=== PATIENT | female | born 1980 | race Caucasian/White ===

== ENCOUNTER 2021-03-01 13:39 | Inpatient (IN) | payer MEDICAID, OTHER ==
[~2021-03-01] VITALS: Ht 162.6 cm; Wt 74.9 kg
[2021-03-01] MEDS: SODIUM CHLORIDE 0.9% 1,000 ML IV SCH (01:00)
[2021-03-01 14:34] LABS: Urine Bacteria NONE SEEN /hpf (None Seen); Urine Blood Negative /uL (Negative); Urine Hyaline Cast FEW /lpf (0 - 2); Urine Mucus FEW (None Seen); Urine Specific Gravity 1.015 (1.001-1.035); Urine WBC 2 /hpf (0 - 5)
[2021-03-01 14:36] LABS: Basophils # (auto) 0.1 10 ^3/uL (0-0.2); Eosinophils # (auto) 0 10 ^3/uL (0-0.8); Lymphocytes # (auto) 0.9 10 ^3/uL (0.4-5.4)
[2021-03-01 14:38] LABS: Basophils % (auto) 0.3 % (0.0-2.0); Eosinophils % (auto) 0.1 % (0.0-7.0); Hematocrit 34.2 % (36.0-46.0); Hemoglobin 12.4 g/dL (12.2-16.2); Lymphocytes % (auto) 4.9 % (10.0-50.0); Mean Corpuscular Hemoglobin 37.2 pg (28.0-32.0); Mean Corpuscular Hgb Conc. 36.2 g/dL (32.0-36.0); Mean Corpuscular Volume 102.9 fL (80.0-100.0); Monocytes # (auto) 1.1 10 ^3/uL (0-1.3); Neutrophils % (auto) 88.7 % (37.0-80.0); Nucleated Red Blood Cells % 0.1 %; Red Blood Cells 3.32 10^6/uL (4.0-5.20); Red Cell Distribution Width 13.1 % (11.8-14.3); White Blood Cell 19.2 10^3/uL (4.4-10.8)
[2021-03-01 14:56] LABS: Alanine Aminotransferase 68 U/L (13-56); Albumin 2.1 g/dL (3.4-5.0); Anion Gap 13 (5-15); Aspartate Aminotransferase 267 U/L (15-37); BUN/Creatinine Ratio 20.6; Blood Urea Nitrogen 7 mg/dL (7-18); Calcium 7.4 mg/dL (8.5-10.1); Carbon Dioxide 24 mmol/L (21-32); Chloride 86 mmol/L (98-107); GFR African American 277 mL/min; GFR Non-African American 229 mL/min; Glucose 112 mg/dL (74-106); Magnesium 1.7 mg/dL (1.6-2.6); Potassium 3.3 mmol/L (3.5-5.1); Sodium 123 mmol/L (136-145)
[2021-03-01 15:01] LABS: Alkaline Phosphatase 554 U/L (45-117); Bilirubin, Total 10.8 mg/dL (0.2-1.0); Total Protein 6.1 g/dL (6.4-8.2)
[2021-03-01] MEDS ORDERED: SODIUM CHLORIDE 0.9% 1,000 ML IVB ONE (18:30)
[2021-03-01] MEDS ORDERED: ONDANSETRON HCL 4 MG/2 ML VIAL IV ONE (18:30)
[2021-03-01 20:02] LABS: Partial Thromboplastin Time 34.4 sec (23.0-31.2)
[2021-03-01 20:18] LABS: INR 4.08 (0.9-1.15)
[2021-03-01 20:29] LABS: Amylase 83 U/L (25-115); Lipase 516 U/L (73-393)
[2021-03-01 20:33] LABS: Lactic Acid w/Reflex 2.5 mmol/L (0.4-2.0)
[2021-03-01] MEDS ORDERED: cefTRIAXone 1GM/50ML D5W 50 ML IV ONE (22:15)
[2021-03-01] MEDS ORDERED: LACTATED RINGER'S 1,000 ML IV ONE (23:00)
[2021-03-01] MEDS ORDERED: ACETAMINOPHEN 325 MG TAB PO PRN (23:45)
[2021-03-01] MEDS ORDERED: MORPHINE SULF INJ 2 MG/ML SYRINGE 1ML IV PRN (23:45)
[2021-03-01] MEDS ORDERED: FOLIC ACID 1 MG, MULTIPLE VITAMIN 10 ML, MAGNESIUM SULF SDV 50% 8 MEQ, THIAMINE INJ 100... INJ ONE ×5 (23:45)
[2021-03-01] MEDS ORDERED: POTASSIUM CHL 20MEQ/100ML 100 ML IV ONE (23:45)
[2021-03-01] MEDS ORDERED: NITROGLYCERIN 0.4 MG SL TAB SL PRN (23:45)
[2021-03-01] MEDS ORDERED: DOCUSATE SOD 100 MG CAP PO PRN (23:45)
[2021-03-02] MEDS ORDERED: THIAMINE 100mg/ml INJ (200mg/2ml VIAL) ONE (00:57)
[2021-03-02] MEDS: MULTIPLE VITAMIN 10 ML, THIAMINE INJ 100 MG in SODIUM CHLORIDE 0.9% 1,000 ML INJ SCH (01:15)
[2021-03-02] MEDS: LORazepam 2MG/ML-1ML VIAL IV PRN ×3 (01:15→21:21)
[2021-03-02 01:24] LABS: Lactic Acid w/Reflex 2.1 mmol/L (0.4-2.0)
[2021-03-02 02:50] VITALS: BP 117/78
[2021-03-02] MEDS ORDERED: GARL200T PO (03:55)
[2021-03-02] MEDS ORDERED: OMEG306C OR (03:55)
[2021-03-02] MEDS ORDERED: MULT-732 OR (03:55)
[2021-03-02 05:00] VITALS: BP 117/83
[2021-03-02] MEDS: metroNIDAZOLE 500MG/100ML 100 ML IV SCH ×3 (05:33→21:21)
[2021-03-02] MEDS: THIAMINE HCL 100 MG TAB PO SCH (08:49)
[2021-03-02] MEDS: ZINC SULFATE 220mg CAP or TAB PO SCH (08:49)
[2021-03-02] MEDS: FOLIC ACID 1 MG TAB PO SCH (08:49)
[2021-03-02] MEDS: MULTIPLE VITAMIN TAB PO SCH (08:49)
[2021-03-02] MEDS: ASCORBIC ACID 500 MG TAB PO SCH ×2 (08:49→21:20)
[2021-03-02] MEDS: cefTRIAXone 1GM/50ML D5W 50 ML IV SCH (08:50)
[2021-03-02 09:00] VITALS: BP 118/87
[2021-03-02] MEDS ORDERED: FAMOTIDINE (10MG/ML) 2ML VL IV SCH (10:00)
[2021-03-02 10:53] LABS: Eosinophils # (auto) 0 10 ^3/uL (0-0.8); Hemoglobin 11.6 g/dL (12.2-16.2); Lymphocytes # (auto) 0.7 10 ^3/uL (0.4-5.4); Mean Corpuscular Hemoglobin 36.3 pg (28.0-32.0); Neutrophils # (auto) 15.7 10 ^3/uL (1.6-8.6); Neutrophils % (auto) 88.3 % (37.0-80.0); Nucleated Red Blood Cells % 0.1 %
[2021-03-02 10:57] LABS: Basophils # (auto) 0.1 10 ^3/uL (0-0.2); Basophils % (auto) 0.7 % (0.0-2.0); Hematocrit 33.7 % (36.0-46.0); Lymphocytes % (auto) 3.9 % (10.0-50.0); Mean Corpuscular Hgb Conc. 34.4 g/dL (32.0-36.0); Mean Corpuscular Volume 105.4 fL (80.0-100.0); Monocytes # (auto) 1.3 10 ^3/uL (0-1.3); Monocytes % (auto) 7.1 % (0.0-12.0); Red Cell Distribution Width 13.6 % (11.8-14.3); White Blood Cell 17.7 10^3/uL (4.4-10.8)
[2021-03-02 11:06] LABS: Albumin 2.1 g/dL (3.4-5.0); Calcium 7.2 mg/dL (8.5-10.1); Potassium 3.2 mmol/L (3.5-5.1)
[2021-03-02 11:09] LABS: BUN/Creatinine Ratio 25.6; Bilirubin, Total 14.9 mg/dL (0.2-1.0); Total Protein 5.9 g/dL (6.4-8.2)
[2021-03-02] MEDS ORDERED: POTASSIUM CHL 20MEQ/100ML 100 ML IV ONE (11:30)
[2021-03-02 13:02] VITALS: BP 120/83
[2021-03-02 15:03] LABS: Amphetamine Screen, Urine NEGATIVE (NEGATIVE); Barbiturate Scree,Urine NEGATIVE (NEGATIVE); Benzodiazephine Screen, Urine NEGATIVE (NEGATIVE); Cannabinoid Screen, Urine NEGATIVE (NEGATIVE); Cocaine Screen, Urine NEGATIVE (NEGATIVE); Opiate Scree,Urine NEGATIVE (NEGATIVE); Phencyclidine Screen, Urine NEGATIVE (NEGATIVE)
[2021-03-02] MEDS: SODIUM CHLORIDE 0.9% 1,000 ML IV SCH (16:25)
[2021-03-02 17:00] VITALS: BP 115/86
[2021-03-02] MEDS: MORPHINE SULFATE 4 MG/ML SYR/VIAL IV PRN ×2 (18:07→23:20)
[2021-03-02 18:51] LABS: Potassium 3.6 mmol/L (3.5-5.1)
[2021-03-02 18:57] LABS: BUN/Creatinine Ratio 26.2; Calcium 7.2 mg/dL (8.5-10.1)
[2021-03-02] MEDS: PANTOPRAZOLE 40 MG/10 ML VIAL INJ IV SCH (21:20)
[2021-03-02] MEDS: HYDROcodone-ACET 5/325MG TAB PO PRN (21:20)
[2021-03-02 22:00] VITALS: BP 112/87
[2021-03-03] MEDS: LORazepam 2MG/ML-1ML VIAL IV PRN ×2 (02:11→22:56)
[2021-03-03 05:00] VITALS: BP 114/83
[2021-03-03] MEDS: metroNIDAZOLE 500MG/100ML 100 ML IV SCH ×3 (05:24→21:33)
[2021-03-03 07:23] LABS: Hemoglobin 10.6 g/dL (12.2-16.2); Mean Corpuscular Hgb Conc. 35.4 g/dL (32.0-36.0); Red Blood Cells 2.83 10^6/uL (4.0-5.20); Red Cell Distribution Width 13.8 % (11.8-14.3)
[2021-03-03 07:24] LABS: Mean Corpuscular Hemoglobin 37.5 pg (28.0-32.0); White Blood Cell 15.5 10^3/uL (4.4-10.8)
[2021-03-03 07:34] LABS: Albumin 1.9 g/dL (3.4-5.0); Calcium 7.2 mg/dL (8.5-10.1); Potassium 3.4 mmol/L (3.5-5.1)
[2021-03-03 07:36] LABS: BUN/Creatinine Ratio 35.1; Bilirubin, Total 17.5 mg/dL (0.2-1.0); Total Protein 5.4 g/dL (6.4-8.2)
[2021-03-03 07:38] LABS: Basophils % (manual) 0 (0.0-2.0); Blast Cells 0; Metamyelocytes % 0; Myelocytes % 0; Promyelocytes % 0; Reactive Lymphocytes 0
[2021-03-03 07:47] LABS: INR 3.79 (0.9-1.15)
[2021-03-03] MEDS: ASCORBIC ACID 500 MG TAB PO SCH (08:30)
[2021-03-03] MEDS: MULTIPLE VITAMIN TAB PO SCH (08:30)
[2021-03-03] MEDS: ZINC SULFATE 220mg CAP or TAB PO SCH (08:31)
[2021-03-03] MEDS: THIAMINE HCL 100 MG TAB PO SCH (08:31)
[2021-03-03] MEDS: FOLIC ACID 1 MG TAB PO SCH (08:31)
[2021-03-03] MEDS: cefTRIAXone 1GM/50ML D5W 50 ML IV SCH (08:33)
[2021-03-03] MEDS: PANTOPRAZOLE 40 MG/10 ML VIAL INJ IV SCH ×2 (08:33→21:32)
[2021-03-03 09:00] VITALS: BP 119/87
[2021-03-03] MEDS: SODIUM CHLORIDE 0.9% 1,000 ML IV SCH (09:05)
[2021-03-03 09:19] LABS: Band Neutrophils % (manual) 6; Eosinophils % (manual) 1 (0-7); Lymphocytes % (manual) 9 (10.0-50.0); Monocytes % (manual) 3 (0-12)
[2021-03-03] MEDS ORDERED: POTASSIUM CHL 20 Meq TABLET PO ONE (12:00)
[2021-03-03] MEDS ORDERED: PHYTONADIONE (VIT K)10 MG/ML 1ML VIAL SUBCUT ONE (12:00)
[2021-03-03 13:00] VITALS: BP 111/80
[2021-03-03] MEDS: MULTIPLE VITAMIN 10 ML, THIAMINE INJ 100 MG in SODIUM CHLORIDE 0.9% 1,000 ML INJ SCH (14:33)
[2021-03-03] MEDS: MORPHINE SULFATE 4 MG/ML SYR/VIAL IV PRN (15:00)
[2021-03-03] MEDS ORDERED: PHYTONADIONE (VIT K)10 MG/ML 1ML VIAL IV ONE (15:15)
[2021-03-03 17:00] VITALS: BP 113/84
[2021-03-03] MEDS ORDERED: phytonadione 10 MG in SODIUM CHL 0.9% 50 ML IV ONE (20:00)
[2021-03-03] MEDS: HYDROcodone-ACET 5/325MG TAB PO PRN (21:32)
[2021-03-03] MEDS: PENTOXIFYLLINE 400 MG ER TAB PO SCH (21:33)
[2021-03-04] MEDS: SODIUM CHLORIDE 0.9% 1,000 ML IV SCH (01:45)
[2021-03-04 05:00] VITALS: BP 108/69
[2021-03-04] MEDS: PENTOXIFYLLINE 400 MG ER TAB PO SCH ×3 (06:06→21:44)
[2021-03-04] MEDS: metroNIDAZOLE 500MG/100ML 100 ML IV SCH (06:06)
[2021-03-04 06:40] LABS: Basophils # (auto) 0.1 10 ^3/uL (0-0.2); Basophils % (auto) 0.8 % (0.0-2.0); Eosinophils # (auto) 0 10 ^3/uL (0-0.8); Eosinophils % (auto) 0.2 % (0.0-7.0); Hematocrit 31.7 % (36.0-46.0); Hemoglobin 10.9 g/dL (12.2-16.2); Lymphocytes # (auto) 1.1 10 ^3/uL (0.4-5.4); Lymphocytes % (auto) 6.3 % (10.0-50.0); Mean Corpuscular Hemoglobin 36.6 pg (28.0-32.0); Mean Corpuscular Hgb Conc. 34.2 g/dL (32.0-36.0); Monocytes # (auto) 1.1 10 ^3/uL (0-1.3); Monocytes % (auto) 6.3 % (0.0-12.0); Neutrophils # (auto) 15.6 10 ^3/uL (1.6-8.6); Neutrophils % (auto) 86.4 % (37.0-80.0); Nucleated Red Blood Cells % 0.1 %; Red Blood Cells 2.96 10^6/uL (4.0-5.20); Red Cell Distribution Width 13.9 % (11.8-14.3)
[2021-03-04 06:50] LABS: Albumin 1.9 g/dL (3.4-5.0); Calcium 7.2 mg/dL (8.5-10.1); Potassium 3.7 mmol/L (3.5-5.1)
[2021-03-04 06:56] LABS: BUN/Creatinine Ratio 29.7; Bilirubin, Total 19.4 mg/dL (0.2-1.0); Total Protein 5.2 g/dL (6.4-8.2)
[2021-03-04 06:58] LABS: Partial Thromboplastin Time 34.9 sec (23.0-31.2)
[2021-03-04 07:14] LABS: INR 4.26 (0.9-1.15)
[2021-03-04 09:00] VITALS: BP 121/89
[2021-03-04] MEDS: FOLIC ACID 1 MG in D5W 5% 50 ML INJ SCH (09:24)
[2021-03-04] MEDS: cefTRIAXone 1GM/50ML D5W 50 ML IV SCH (09:24)
[2021-03-04] MEDS: MULTIPLE VITAMIN TAB PO SCH (09:25)
[2021-03-04] MEDS: THIAMINE 100mg/ml INJ (200mg/2ml VIAL) IV SCH (09:25)
[2021-03-04] MEDS: PANTOPRAZOLE 40 MG/10 ML VIAL INJ IV SCH ×2 (09:25→21:42)
[2021-03-04] MEDS: LORazepam 2MG/ML-1ML VIAL IV PRN ×2 (09:54→20:07)
[2021-03-04] MEDS ORDERED: PHYTONADIONE (VIT K)10 MG/ML 1ML VIAL IV ONE (10:15)
[2021-03-04] MEDS ORDERED: SPIRONOLACTONE 25 MG TAB PO ONE (10:15)
[2021-03-04 12:17] VITALS: BP 115/84
[2021-03-04] MEDS: MULTIPLE VITAMIN 10 ML, THIAMINE INJ 100 MG in SODIUM CHLORIDE 0.9% 1,000 ML INJ SCH (13:02)
[2021-03-04] MEDS: PIPERACILLIN-TAZOB 3.375GM 100 ML IV SCH ×2 (13:02→21:44)
[2021-03-04] MEDS ORDERED: MIDAZOLAM HCL 1MG/1ML-2 ML VIAL ONE (14:12)
[2021-03-04] MEDS ORDERED: SODIUM CHL 0.9% 0 ML ONE (14:12)
[2021-03-04] MEDS ORDERED: fentaNYL CITRATE 100 MCG/2 ML VL ONE (14:12)
[2021-03-04] MEDS ORDERED: ANGIOMAX 250 MG VIAL IV ONE (14:12)
[2021-03-04 16:46] VITALS: BP 97/66
[2021-03-04 22:00] VITALS: BP 103/44
[2021-03-04] MEDS ORDERED: FUROSEMIDE 20 MG/2 ML VIAL IV ONE (22:00)
[2021-03-05] VITALS (9 sets, daily range): BP systolic 97–139; BP diastolic 70–93
[2021-03-05] MEDS: LORazepam 2MG/ML-1ML VIAL IV PRN ×4 (02:14→23:03)
[2021-03-05] MEDS: PENTOXIFYLLINE 400 MG ER TAB PO SCH ×3 (05:44→22:35)
[2021-03-05] MEDS: PIPERACILLIN-TAZOB 3.375GM 100 ML IV SCH ×3 (05:44→22:36)
[2021-03-05 06:25] LABS: Basophils # (auto) 0.1 10 ^3/uL (0-0.2); Basophils % (auto) 0.5 % (0.0-2.0); Eosinophils # (auto) 0 10 ^3/uL (0-0.8); Eosinophils % (auto) 0.1 % (0.0-7.0); Hematocrit 31.9 % (36.0-46.0); Hemoglobin 10.9 g/dL (12.2-16.2); Red Blood Cells 2.98 10^6/uL (4.0-5.20)
[2021-03-05 06:26] LABS: Lymphocytes # (auto) 0.9 10 ^3/uL (0.4-5.4); Lymphocytes % (auto) 5.7 % (10.0-50.0); Mean Corpuscular Hemoglobin 36.6 pg (28.0-32.0); Mean Corpuscular Hgb Conc. 34.2 g/dL (32.0-36.0); Mean Corpuscular Volume 107.1 fL (80.0-100.0); Monocytes # (auto) 1.4 10 ^3/uL (0-1.3); Monocytes % (auto) 8.8 % (0.0-12.0); Neutrophils # (auto) 13.6 10 ^3/uL (1.6-8.6); Neutrophils % (auto) 84.9 % (37.0-80.0); Nucleated Red Blood Cells % 0.2 %; Red Cell Distribution Width 13.8 % (11.8-14.3)
[2021-03-05 06:37] LABS: Albumin 1.9 g/dL (3.4-5.0); Calcium 7.1 mg/dL (8.5-10.1)
[2021-03-05 06:40] LABS: BUN/Creatinine Ratio 22.9
[2021-03-05 06:51] LABS: Total Protein 4.9 g/dL (6.4-8.2)
[2021-03-05] MEDS: FOLIC ACID 1 MG in D5W 5% 50 ML INJ SCH (09:16)
[2021-03-05] MEDS: THIAMINE 100mg/ml INJ (200mg/2ml VIAL) IV SCH (09:17)
[2021-03-05] MEDS: PANTOPRAZOLE 40 MG/10 ML VIAL INJ IV SCH ×2 (09:17→22:36)
[2021-03-05] MEDS: MULTIPLE VITAMIN TAB PO SCH (09:18)
[2021-03-05] MEDS ORDERED: SPIRONOLACTONE 25 MG TAB PO SCH (10:00)
[2021-03-05] MEDS ORDERED: PHYTONADIONE (VIT K)10 MG/ML 1ML VIAL IV ONE (10:30)
[2021-03-05] MEDS ORDERED: POTASSIUM CHL 20 Meq TABLET PO ONE (10:45)
[2021-03-05] MEDS ORDERED: CLINIMIX PER PHARMACY 0 ML IV SCH (10:45)
[2021-03-05] MEDS ORDERED: HYDROCORTISONE ACET 25 MG RECTAL SUPP PR ONE (10:45)
[2021-03-05] MEDS: Ensure HIGH Protein Chocolate 8oz Bottle PO SCH ×2 (12:00→18:03)
[2021-03-05] MEDS: MULTIPLE VITAMIN 10 ML, THIAMINE INJ 100 MG in SODIUM CHLORIDE 0.9% 1,000 ML INJ SCH (13:37)
[2021-03-05] MEDS: SPIRONOLACTONE 25 MG TAB PO SCH (18:03)
[2021-03-05] MEDS ORDERED: AMINO ACID INFUSION IN D10W 1,000 ML IV NR (20:00)
[2021-03-05] MEDS: HYDROCORTISONE ACET 25 MG RECTAL SUPP PR SCH (22:35)
[2021-03-06] MEDS ORDERED: DEXTROSE (50%) 50ML SYRG IV SCH
[2021-03-06] MEDS: ACCU-CHEK COMFORT CURVE STRIP VI SCH ×5 (00:41→23:49)
[2021-03-06] MEDS: InsuLIN REG 1unit/0.01ml Soln (100units/ml) SC SCH ×5 (00:44→23:52)
[2021-03-06] MEDS: LORazepam 2MG/ML-1ML VIAL IV PRN ×4 (03:59→20:52)
[2021-03-06 06:33] LABS: Basophils # (auto) 0.1 10 ^3/uL (0-0.2); Basophils % (auto) 0.3 % (0.0-2.0); Hemoglobin 11.1 g/dL (12.2-16.2); Nucleated Red Blood Cells % 0.1 %; White Blood Cell 20.3 10^3/uL (4.4-10.8)
[2021-03-06 06:37] LABS: Eosinophils # (auto) 0 10 ^3/uL (0-0.8); Eosinophils % (auto) 0.2 % (0.0-7.0); Hematocrit 32.4 % (36.0-46.0); Lymphocytes # (auto) 1.2 10 ^3/uL (0.4-5.4); Lymphocytes % (auto) 6.1 % (10.0-50.0); Mean Corpuscular Hemoglobin 36.8 pg (28.0-32.0); Mean Corpuscular Hgb Conc. 34.3 g/dL (32.0-36.0); Mean Corpuscular Volume 107.1 fL (80.0-100.0); Monocytes # (auto) 1.9 10 ^3/uL (0-1.3); Monocytes % (auto) 9.2 % (0.0-12.0); Neutrophils # (auto) 17.1 10 ^3/uL (1.6-8.6); Neutrophils % (auto) 84.2 % (37.0-80.0); Red Blood Cells 3.02 10^6/uL (4.0-5.20)
[2021-03-06 06:46] LABS: Potassium 3.2 mmol/L (3.5-5.1)
[2021-03-06] MEDS: PIPERACILLIN-TAZOB 3.375GM 100 ML IV SCH ×3 (06:49→21:13)
[2021-03-06] MEDS: PENTOXIFYLLINE 400 MG ER TAB PO SCH ×3 (06:49→21:14)
[2021-03-06 06:55] VITALS: BP 106/70
[2021-03-06 06:55] LABS: Albumin 1.7 g/dL (3.4-5.0); Calcium 6.9 mg/dL (8.5-10.1); Magnesium 1.9 mg/dL (1.6-2.6); Total Protein 4.6 g/dL (6.4-8.2)
[2021-03-06] MEDS: SPIRONOLACTONE 25 MG TAB PO SCH ×2 (06:56→18:05)
[2021-03-06 07:09] LABS: Phosphorus 0.4 mg/dL (2.5-4.90)
[2021-03-06 07:14] LABS: INR 5.66 (0.9-1.15)
[2021-03-06] MEDS ORDERED: POTASSIUM PHOSPHATE 44 MEQ in D5W 5% 250 ML IV ONE (08:30)
[2021-03-06 09:01] VITALS: BP 113/76
[2021-03-06] MEDS: PANTOPRAZOLE 40 MG/10 ML VIAL INJ IV SCH (09:30)
[2021-03-06] MEDS: THIAMINE 100mg/ml INJ (200mg/2ml VIAL) IV SCH (09:30)
[2021-03-06] MEDS: MULTIPLE VITAMIN TAB PO SCH (09:31)
[2021-03-06] MEDS: FOLIC ACID 1 MG in D5W 5% 50 ML INJ SCH (09:34)
[2021-03-06] MEDS: HYDROCORTISONE ACET 25 MG RECTAL SUPP PR SCH ×2 (09:35→21:15)
[2021-03-06] MEDS: Ensure HIGH Protein Chocolate 8oz Bottle PO SCH ×3 (09:35→18:10)
[2021-03-06] MEDS ORDERED: POTASSIUM CHL 20 Meq TABLET PO ONE (10:15)
[2021-03-06] MEDS ORDERED: phytonadione 10 MG in SODIUM CHL 0.9% 50 ML IV ONE (10:30)
[2021-03-06] MEDS ORDERED: PHYTONADIONE (VIT K)10 MG/ML 1ML VIAL IV ONE (10:30)
[2021-03-06] MEDS ORDERED: FUROSEMIDE 40 MG TAB PO ONE (10:30)
[2021-03-06] MEDS ORDERED: THIAMINE IV SCH (12:00)
[2021-03-06] MEDS ORDERED: [UNRECOGNIZED DRUG - OTHER] IV SCH (12:00)
[2021-03-06] MEDS ORDERED: MULTIPLE VITAMIN IV SCH (12:00)
[2021-03-06] MEDS ORDERED: FOLIC ACID IV SCH (12:00)
[2021-03-06 13:00] VITALS: BP 110/71
[2021-03-06 16:38] VITALS: BP 125/91
[2021-03-06] MEDS: IPRATROPIUM BROM 0.5 MG/2.5ML INH SOL NEB PRN (18:52)
[2021-03-06] MEDS: ALBUTEROL SULF 2.5 MG/0.5ML(0.5%) NEB SOLN NEB PRN (18:52)
[2021-03-06] MEDS ORDERED: AMINO ACID INFUSION IN D10W 1,000 ML IV NR (20:00)
[2021-03-06 20:46] VITALS: BP 101/78
[2021-03-06] MEDS: PANTOPRAZOLE 40 MG TAB PO SCH (21:13)
[2021-03-06 22:51] VITALS: BP 101/78
[2021-03-07 05:00] VITALS: BP 108/80
[2021-03-07] MEDS: PENTOXIFYLLINE 400 MG ER TAB PO SCH ×3 (05:48→22:40)
[2021-03-07] MEDS: SPIRONOLACTONE 25 MG TAB PO SCH ×2 (05:48→18:01)
[2021-03-07] MEDS: PIPERACILLIN-TAZOB 3.375GM 100 ML IV SCH (05:48)
[2021-03-07] MEDS: ACCU-CHEK COMFORT CURVE STRIP VI SCH (05:49)
[2021-03-07] MEDS: InsuLIN REG 1unit/0.01ml Soln (100units/ml) SC SCH (05:54)
[2021-03-07] MEDS: IPRATROPIUM BROM 0.5 MG/2.5ML INH SOL NEB PRN ×2 (05:58→22:18)
[2021-03-07] MEDS: LORazepam 2MG/ML-1ML VIAL IV PRN ×3 (06:12→19:52)
[2021-03-07 07:22] LABS: Hemoglobin 11.6 g/dL (12.2-16.2); Mean Corpuscular Volume 108.3 fL (80.0-100.0)
[2021-03-07 07:23] LABS: Hematocrit 33.8 % (36.0-46.0); Mean Corpuscular Hemoglobin 37.3 pg (28.0-32.0); Mean Corpuscular Hgb Conc. 34.4 g/dL (32.0-36.0); Red Blood Cells 3.12 10^6/uL (4.0-5.20); Red Cell Distribution Width 14.6 % (11.8-14.3); White Blood Cell 22.8 10^3/uL (4.4-10.8)
[2021-03-07 07:31] LABS: Basophils % (manual) 0 (0.0-2.0); Blast Cells 0; Eosinophils % (manual) 0 (0-7); Myelocytes % 0; Promyelocytes % 0; Reactive Lymphocytes 0
[2021-03-07 07:43] LABS: Albumin 1.5 g/dL (3.4-5.0); Calcium 6.9 mg/dL (8.5-10.1); Magnesium 1.7 mg/dL (1.6-2.6)
[2021-03-07 07:46] LABS: Bilirubin, Total 19.7 mg/dL (0.2-1.0); Total Protein 4.7 g/dL (6.4-8.2)
[2021-03-07 08:04] LABS: Band Neutrophils % (manual) 2; Lymphocytes % (manual) 7 (10.0-50.0); Metamyelocytes % 2; Monocytes % (manual) 5 (0-12)
[2021-03-07 08:06] LABS: Phosphorus 0.9 mg/dL (2.5-4.90)
[2021-03-07] MEDS ORDERED: SODIUM PHOSPHATES 40 MEQ in D5W 5% 250 ML IV ONE (08:30)
[2021-03-07] MEDS: Ensure HIGH Protein Chocolate 8oz Bottle PO SCH ×3 (08:40→18:01)
[2021-03-07] MEDS: FOLIC ACID 1 MG in D5W 5% 50 ML INJ SCH (08:41)
[2021-03-07] MEDS: THIAMINE 100mg/ml INJ (200mg/2ml VIAL) IV SCH (08:41)
[2021-03-07] MEDS: MULTIPLE VITAMIN TAB PO SCH (08:41)
[2021-03-07] MEDS: PANTOPRAZOLE 40 MG TAB PO SCH ×2 (08:41→22:40)
[2021-03-07] MEDS: HYDROCORTISONE ACET 25 MG RECTAL SUPP PR SCH (08:41)
[2021-03-07 08:42] VITALS: BP 103/73
[2021-03-07] MEDS ORDERED: MULTIPLE VITAMIN 10 ML, THIAMINE INJ 100 MG in SODIUM CHLORIDE 0.9% 1,000 ML IV SCH (12:00)
[2021-03-07 13:00] VITALS: BP 107/80
[2021-03-07] MEDS: metroNIDAZOLE 500MG/100ML 100 ML IV SCH ×2 (14:18→22:40)
[2021-03-07 17:34] VITALS: BP 109/76
[2021-03-07 22:00] VITALS: BP 113/70
[2021-03-07] MEDS: ALBUTEROL SULF 2.5 MG/0.5ML(0.5%) NEB SOLN NEB PRN (22:18)
[2021-03-08] MEDS: LORazepam 2MG/ML-1ML VIAL IV PRN ×3 (01:59→18:34)
[2021-03-08 05:00] VITALS: BP 99/69
[2021-03-08] MEDS: SPIRONOLACTONE 25 MG TAB PO SCH ×2 (06:21→17:39)
[2021-03-08] MEDS: PENTOXIFYLLINE 400 MG ER TAB PO SCH ×3 (06:21→22:31)
[2021-03-08] MEDS: metroNIDAZOLE 500MG/100ML 100 ML IV SCH ×3 (06:21→22:31)
[2021-03-08 06:45] LABS: Hematocrit 36.2 % (36.0-46.0); Hemoglobin 12.2 g/dL (12.2-16.2); Mean Corpuscular Hemoglobin 36.4 pg (28.0-32.0); Mean Corpuscular Hgb Conc. 33.8 g/dL (32.0-36.0); Mean Corpuscular Volume 107.8 fL (80.0-100.0); Red Blood Cells 3.36 10^6/uL (4.0-5.20); Red Cell Distribution Width 15.2 % (11.8-14.3)
[2021-03-08 06:58] LABS: Basophils % (manual) 0 (0.0-2.0); Blast Cells 0; Eosinophils % (manual) 0 (0-7); Myelocytes % 0; Potassium 3.9 mmol/L (3.5-5.1); Promyelocytes % 0; Reactive Lymphocytes 0
[2021-03-08 07:11] LABS: Albumin 1.6 g/dL (3.4-5.0); BUN/Creatinine Ratio 43.8; Magnesium 1.8 mg/dL (1.6-2.6); Phosphorus 1.6 mg/dL (2.5-4.90); Total Protein 4.6 g/dL (6.4-8.2)
[2021-03-08 08:14] VITALS: BP 114/85
[2021-03-08 09:10] LABS: Band Neutrophils % (manual) 10; Lymphocytes % (manual) 4 (10.0-50.0); Metamyelocytes % 2; Monocytes % (manual) 5 (0-12)
[2021-03-08] MEDS: PANTOPRAZOLE 40 MG TAB PO SCH ×2 (09:16→22:31)
[2021-03-08] MEDS: Ensure HIGH Protein Chocolate 8oz Bottle PO SCH ×3 (09:16→18:27)
[2021-03-08] MEDS: cefTRIAXone 1GM/50ML D5W 50 ML IV SCH (09:16)
[2021-03-08] MEDS: THIAMINE 100mg/ml INJ (200mg/2ml VIAL) IV SCH (09:16)
[2021-03-08] MEDS: MULTIPLE VITAMIN TAB PO SCH (09:16)
[2021-03-08] MEDS: FOLIC ACID 1 MG in D5W 5% 50 ML INJ SCH (09:49)
[2021-03-08 12:38] VITALS: BP 127/95
[2021-03-08 13:33] LABS: INR 4.62 (0.9-1.15)
[2021-03-08 16:54] VITALS: BP 119/99
[2021-03-08 22:00] VITALS: BP 117/93
[2021-03-09] MEDS: LORazepam 2MG/ML-1ML VIAL IV PRN ×4 (03:59→22:59)
[2021-03-09 05:30] VITALS: BP 108/79
[2021-03-09] MEDS: metroNIDAZOLE 500MG/100ML 100 ML IV SCH ×3 (05:44→22:26)
[2021-03-09] MEDS: PENTOXIFYLLINE 400 MG ER TAB PO SCH ×3 (05:45→22:27)
[2021-03-09] MEDS: SPIRONOLACTONE 25 MG TAB PO SCH ×2 (05:45→18:44)
[2021-03-09] MEDS: MORPHINE SULFATE 4 MG/ML SYR/VIAL IV PRN (07:02)
[2021-03-09 07:04] LABS: Mean Corpuscular Volume 109.2 fL (80.0-100.0)
[2021-03-09 07:06] LABS: Hematocrit 35.4 % (36.0-46.0); Hemoglobin 12.3 g/dL (12.2-16.2); Mean Corpuscular Hemoglobin 37.8 pg (28.0-32.0); Mean Corpuscular Hgb Conc. 34.7 g/dL (32.0-36.0); Red Blood Cells 3.24 10^6/uL (4.0-5.20); Red Cell Distribution Width 15.6 % (11.8-14.3)
[2021-03-09 07:10] LABS: Basophils % (manual) 0 (0.0-2.0); Blast Cells 0; Metamyelocytes % 0; Promyelocytes % 0; Reactive Lymphocytes 0
[2021-03-09 07:24] LABS: Partial Thromboplastin Time 41.3 sec (23.0-31.2)
[2021-03-09 07:26] LABS: Albumin 1.6 g/dL (3.4-5.0); Anion Gap 8 (5-15); Blood Urea Nitrogen 23 mg/dL (7-18); Calcium 7.1 mg/dL (8.5-10.1); Carbon Dioxide 23 mmol/L (21-32); Chloride 96 mmol/L (98-107); Glucose 111 mg/dL (74-106); Magnesium 2.2 mg/dL (1.6-2.6); Potassium 4.5 mmol/L (3.5-5.1); Sodium 127 mmol/L (136-145)
[2021-03-09 07:29] LABS: INR 4.35 (0.9-1.15)
[2021-03-09 07:33] LABS: Alanine Aminotransferase 62 U/L (13-56); Alkaline Phosphatase 272 U/L (45-117); Aspartate Aminotransferase 132 U/L (15-37); BUN/Creatinine Ratio 47.9; Bilirubin, Total 19.9 mg/dL (0.2-1.0); GFR African American 186 mL/min; GFR Non-African American 154 mL/min; Phosphorus 1.2 mg/dL (2.5-4.90); Total Protein 4.7 g/dL (6.4-8.2); Uric Acid 3.2 mg/dL (2.6-6.0)
[2021-03-09 07:58] LABS: Band Neutrophils % (manual) 5; Eosinophils % (manual) 1 (0-7); Lymphocytes % (manual) 3 (10.0-50.0); Monocytes % (manual) 6 (0-12); Myelocytes % 2
[2021-03-09] MEDS: Ensure HIGH Protein Chocolate 8oz Bottle PO SCH ×3 (08:09→18:45)
[2021-03-09] MEDS: cefTRIAXone 1GM/50ML D5W 50 ML IV SCH (08:39)
[2021-03-09] MEDS: MULTIPLE VITAMIN TAB PO SCH (09:45)
[2021-03-09] MEDS: PANTOPRAZOLE 40 MG TAB PO SCH ×2 (09:45→22:27)
[2021-03-09] MEDS: THIAMINE 100mg/ml INJ (200mg/2ml VIAL) IV SCH (09:46)
[2021-03-09] MEDS ORDERED: ALBUMIN 25% 50 ML IV ONE (10:15)
[2021-03-09] MEDS: FOLIC ACID 1 MG in D5W 5% 50 ML INJ SCH (11:20)
[2021-03-09] MEDS: ALBUMIN 25% 50 ML IV SCH ×2 (11:58→18:45)
[2021-03-09 14:10] VITALS: BP 121/90
[2021-03-09 14:34] VITALS: BP 113/82
[2021-03-09 14:49] VITALS: BP 114/76
[2021-03-09 15:50] VITALS: BP 119/80
[2021-03-09 22:00] VITALS: BP 103/71
[2021-03-10] VITALS (10 sets, daily range): BP systolic 96–145; BP diastolic 68–96
[2021-03-10] MEDS: ALBUMIN 25% 50 ML IV SCH (02:50)
[2021-03-10] MEDS: PENTOXIFYLLINE 400 MG ER TAB PO SCH ×3 (06:19→21:50)
[2021-03-10] MEDS: SPIRONOLACTONE 25 MG TAB PO SCH ×2 (06:19→18:09)
[2021-03-10] MEDS: metroNIDAZOLE 500MG/100ML 100 ML IV SCH ×2 (06:30→14:01)
[2021-03-10 07:45] LABS: Red Blood Cells 3.07 10^6/uL (4.0-5.20)
[2021-03-10 07:47] LABS: Hematocrit 33.8 % (36.0-46.0); Hemoglobin 11.6 g/dL (12.2-16.2); Mean Corpuscular Hemoglobin 37.9 pg (28.0-32.0); Mean Corpuscular Hgb Conc. 34.5 g/dL (32.0-36.0); Mean Corpuscular Volume 109.9 fL (80.0-100.0); Red Cell Distribution Width 16.3 % (11.8-14.3); White Blood Cell 28.9 10^3/uL (4.4-10.8)
[2021-03-10 07:50] LABS: Basophils % (manual) 0 (0.0-2.0); Blast Cells 0; Eosinophils % (manual) 0 (0-7); Metamyelocytes % 0; Myelocytes % 0; Promyelocytes % 0; Reactive Lymphocytes 0
[2021-03-10 07:59] LABS: Albumin 2.2 g/dL (3.4-5.0); Calcium 7.6 mg/dL (8.5-10.1); Potassium 4.4 mmol/L (3.5-5.1)
[2021-03-10 08:04] LABS: Partial Thromboplastin Time 42.8 sec (23.0-31.2)
[2021-03-10 08:05] LABS: BUN/Creatinine Ratio 45.7; Bilirubin, Total 20.1 mg/dL (0.2-1.0); Magnesium 2.3 mg/dL (1.6-2.6); Total Protein 4.9 g/dL (6.4-8.2)
[2021-03-10 08:15] LABS: INR 4.14 (0.9-1.15)
[2021-03-10 08:48] LABS: White Blood Cell 32.5 10^3/uL (4.4-10.8)
[2021-03-10] MEDS: Ensure HIGH Protein Chocolate 8oz Bottle PO SCH ×3 (09:25→18:09)
[2021-03-10] MEDS: cefTRIAXone 1GM/50ML D5W 50 ML IV SCH (09:26)
[2021-03-10] MEDS: MULTIPLE VITAMIN TAB PO SCH (09:26)
[2021-03-10] MEDS: THIAMINE 100mg/ml INJ (200mg/2ml VIAL) IV SCH (09:26)
[2021-03-10] MEDS: PANTOPRAZOLE 40 MG TAB PO SCH ×2 (09:27→21:49)
[2021-03-10 09:35] LABS: Band Neutrophils % (manual) 3; Lymphocytes % (manual) 6 (10.0-50.0); Monocytes % (manual) 3 (0-12)
[2021-03-10] MEDS: FOLIC ACID 1 MG in D5W 5% 50 ML INJ SCH (10:57)
[2021-03-10] MEDS: LORazepam 2MG/ML-1ML VIAL IV PRN ×3 (10:58→23:00)
[2021-03-10] MEDS ORDERED: FUROSEMIDE 20 MG/2 ML VIAL IV ONE (12:00)
[2021-03-10] MEDS ORDERED: POTASSIUM PHOSPHATE 44 MEQ in D5W 5% 250 ML IV ONE (12:00)
[2021-03-10] MEDS: methylPREDNISolone SOD SUCC 40 MG/ML VL IV SCH (18:09)
[2021-03-10] MEDS: PIPERACILLIN-TAZOB 3.375GM 100 ML IV SCH (18:09)
[2021-03-10] MEDS: ALBUTEROL SULF 2.5 MG/0.5ML(0.5%) NEB SOLN NEB PRN (19:41)
[2021-03-10] MEDS: IPRATROPIUM BROM 0.5 MG/2.5ML INH SOL NEB PRN (19:42)
[2021-03-11] MEDS: PIPERACILLIN-TAZOB 3.375GM 100 ML IV SCH ×4 (00:45→17:56)
[2021-03-11] MEDS: LORazepam 2MG/ML-1ML VIAL IV PRN ×3 (03:50→20:32)
[2021-03-11 05:00] VITALS: BP 114/89
[2021-03-11] MEDS: SPIRONOLACTONE 25 MG TAB PO SCH ×2 (05:55→17:45)
[2021-03-11] MEDS: PENTOXIFYLLINE 400 MG ER TAB PO SCH ×3 (05:55→21:08)
[2021-03-11 07:19] LABS: Hematocrit 39.7 % (36.0-46.0); Hemoglobin 13.4 g/dL (12.2-16.2); Mean Corpuscular Hemoglobin 37.3 pg (28.0-32.0); Mean Corpuscular Hgb Conc. 33.7 g/dL (32.0-36.0); Mean Corpuscular Volume 110.7 fL (80.0-100.0); Red Blood Cells 3.59 10^6/uL (4.0-5.20); Red Cell Distribution Width 16.7 % (11.8-14.3)
[2021-03-11 07:23] LABS: White Blood Cell 33.3 10^3/uL (4.4-10.8)
[2021-03-11 07:24] LABS: Basophils % (manual) 0 (0.0-2.0); Blast Cells 0; Eosinophils % (manual) 0 (0-7); Promyelocytes % 0; Reactive Lymphocytes 0
[2021-03-11 07:41] LABS: Band Neutrophils % (manual) 2; Lymphocytes % (manual) 4 (10.0-50.0); Metamyelocytes % 1; Monocytes % (manual) 5 (0-12); Myelocytes % 1
[2021-03-11 07:51] LABS: BUN/Creatinine Ratio 37.3; Bilirubin, Total 20.3 mg/dL (0.2-1.0); Calcium 7.5 mg/dL (8.5-10.1); Phosphorus 1.7 mg/dL (2.5-4.90)
[2021-03-11] MEDS: Ensure HIGH Protein Chocolate 8oz Bottle PO SCH ×3 (08:33→17:43)
[2021-03-11 09:00] VITALS: BP 127/97
[2021-03-11] MEDS: PANTOPRAZOLE 40 MG TAB PO SCH ×2 (09:31→21:07)
[2021-03-11] MEDS: THIAMINE 100mg/ml INJ (200mg/2ml VIAL) IV SCH (09:31)
[2021-03-11] MEDS: methylPREDNISolone SOD SUCC 40 MG/ML VL IV SCH (09:31)
[2021-03-11] MEDS: MULTIPLE VITAMIN TAB PO SCH (09:31)
[2021-03-11] MEDS: FOLIC ACID 1 MG in D5W 5% 50 ML INJ SCH (09:33)
[2021-03-11] MEDS ORDERED: FUROSEMIDE 20 MG/2 ML VIAL IV ONE (12:45)
[2021-03-11] MEDS: ALBUTEROL SULF 2.5 MG/0.5ML(0.5%) NEB SOLN NEB PRN (19:36)
[2021-03-11] MEDS: IPRATROPIUM BROM 0.5 MG/2.5ML INH SOL NEB PRN (19:36)
[2021-03-11 22:00] VITALS: BP 107/75
[2021-03-12] MEDS: PIPERACILLIN-TAZOB 3.375GM 100 ML IV SCH ×2 (00:08→06:17)
[2021-03-12] MEDS: LORazepam 2MG/ML-1ML VIAL IV PRN ×2 (01:04→19:47)
[2021-03-12 05:00] VITALS: BP 108/65
[2021-03-12] MEDS: PENTOXIFYLLINE 400 MG ER TAB PO SCH ×3 (06:16→21:18)
[2021-03-12] MEDS: SPIRONOLACTONE 25 MG TAB PO SCH ×2 (06:16→17:17)
[2021-03-12 07:22] LABS: Hematocrit 38.5 % (36.0-46.0); Hemoglobin 13.3 g/dL (12.2-16.2); Mean Corpuscular Hemoglobin 37.5 pg (28.0-32.0); Mean Corpuscular Hgb Conc. 34.5 g/dL (32.0-36.0); Red Blood Cells 3.54 10^6/uL (4.0-5.20)
[2021-03-12 07:26] LABS: Mean Corpuscular Volume 108.7 fL (80.0-100.0); Red Cell Distribution Width 15.9 % (11.8-14.3)
[2021-03-12 07:37] LABS: Albumin 1.8 g/dL (3.4-5.0); Calcium 7.5 mg/dL (8.5-10.1)
[2021-03-12 07:40] LABS: BUN/Creatinine Ratio 37.5; Bilirubin, Total 20.1 mg/dL (0.2-1.0); Total Protein 4.7 g/dL (6.4-8.2); White Blood Cell 47.4 10^3/uL (4.4-10.8)
[2021-03-12 07:41] LABS: Basophils % (manual) 0 (0.0-2.0); Blast Cells 0; Eosinophils % (manual) 0 (0-7); Myelocytes % 0; Promyelocytes % 0; Reactive Lymphocytes 0
[2021-03-12] MEDS: Ensure HIGH Protein Chocolate 8oz Bottle PO SCH ×3 (08:00→17:17)
[2021-03-12 08:31] LABS: Band Neutrophils % (manual) 2; Lymphocytes % (manual) 3 (10.0-50.0); Metamyelocytes % 3; Monocytes % (manual) 9 (0-12)
[2021-03-12 09:00] VITALS: BP 108/82
[2021-03-12] MEDS ORDERED: MEROPENEM 1GM IVPB 100 ML IV ONE (10:30)
[2021-03-12] MEDS: PANTOPRAZOLE 40 MG TAB PO SCH ×2 (10:56→21:18)
[2021-03-12] MEDS: MULTIPLE VITAMIN TAB PO SCH (10:56)
[2021-03-12] MEDS: THIAMINE 100mg/ml INJ (200mg/2ml VIAL) IV SCH (10:56)
[2021-03-12] MEDS: ALBUMIN 25% 50 ML IV SCH ×2 (12:54→17:20)
[2021-03-12] MEDS: FOLIC ACID 1 MG in D5W 5% 50 ML INJ SCH (12:54)
[2021-03-12 13:00] VITALS: BP 112/74
[2021-03-12 17:00] VITALS: BP 112/75
[2021-03-12 19:03] VITALS: BP 112/75
[2021-03-12] MEDS: IPRATROPIUM BROM 0.5 MG/2.5ML INH SOL NEB PRN (19:04)
[2021-03-12] MEDS: ALBUTEROL SULF 2.5 MG/0.5ML(0.5%) NEB SOLN NEB PRN (19:05)
[2021-03-12] MEDS: MEROPENEM 1GM IVPB 100 ML IV SCH (20:12)
[2021-03-12 22:00] VITALS: BP 124/89
[2021-03-13] MEDS: ALBUMIN 25% 50 ML IV SCH (03:01)
[2021-03-13] MEDS: MEROPENEM 1GM IVPB 100 ML IV SCH ×3 (03:58→18:25)
[2021-03-13 05:00] VITALS: BP 104/75
[2021-03-13 06:05] LABS: Hemoglobin 13.2 g/dL (12.2-16.2); Mean Corpuscular Hgb Conc. 34.5 g/dL (32.0-36.0)
[2021-03-13 06:07] LABS: Hematocrit 38.3 % (36.0-46.0); Mean Corpuscular Hemoglobin 37.9 pg (28.0-32.0); Mean Corpuscular Volume 109.7 fL (80.0-100.0); Red Blood Cells 3.49 10^6/uL (4.0-5.20); Red Cell Distribution Width 16.1 % (11.8-14.3)
[2021-03-13] MEDS: PENTOXIFYLLINE 400 MG ER TAB PO SCH ×3 (06:20→21:03)
[2021-03-13] MEDS: SPIRONOLACTONE 25 MG TAB PO SCH ×2 (06:20→18:25)
[2021-03-13 06:23] LABS: Albumin 2.4 g/dL (3.4-5.0); Potassium 5.1 mmol/L (3.5-5.1)
[2021-03-13 06:27] LABS: BUN/Creatinine Ratio 47.5; Bilirubin, Total 21.2 mg/dL (0.2-1.0); Total Protein 4.9 g/dL (6.4-8.2)
[2021-03-13 06:29] LABS: Basophils % (manual) 0 (0.0-2.0); Blast Cells 0; Eosinophils % (manual) 0 (0-7); Metamyelocytes % 0; Myelocytes % 0; Promyelocytes % 0; Reactive Lymphocytes 0; White Blood Cell 41.1 10^3/uL (4.4-10.8)
[2021-03-13] MEDS: FOLIC ACID 1 MG in D5W 5% 50 ML INJ SCH (07:50)
[2021-03-13] MEDS: PANTOPRAZOLE 40 MG TAB PO SCH ×2 (07:50→21:03)
[2021-03-13] MEDS: THIAMINE 100mg/ml INJ (200mg/2ml VIAL) IV SCH (07:50)
[2021-03-13] MEDS: MULTIPLE VITAMIN TAB PO SCH (07:50)
[2021-03-13] MEDS: Ensure HIGH Protein Chocolate 8oz Bottle PO SCH ×3 (07:51→18:25)
[2021-03-13 07:55] LABS: Band Neutrophils % (manual) 16; Lymphocytes % (manual) 3 (10.0-50.0); Monocytes % (manual) 5 (0-12)
[2021-03-13 09:00] VITALS: BP 110/75
[2021-03-13] MEDS: HYDROcodone-ACET 5/325MG TAB PO PRN ×2 (10:14→20:13)
[2021-03-13] MEDS: LORazepam 2MG/ML-1ML VIAL IV PRN (12:19)
[2021-03-13 13:00] VITALS: BP 118/88
[2021-03-13] MEDS ORDERED: FUROSEMIDE 40 MG/4 ML VIAL IV ONE (15:00)
[2021-03-13 17:00] VITALS: BP 102/66
[2021-03-13 22:00] VITALS: BP 110/80
[2021-03-14] MEDS: MEROPENEM 1GM IVPB 100 ML IV SCH ×4 (03:00→19:00)
[2021-03-14 05:00] VITALS: BP 135/90
[2021-03-14 06:41] LABS: Hematocrit 41.8 % (36.0-46.0); Mean Corpuscular Hgb Conc. 33.4 g/dL (32.0-36.0); Mean Corpuscular Volume 110.6 fL (80.0-100.0); Red Blood Cells 3.78 10^6/uL (4.0-5.20); Red Cell Distribution Width 15.8 % (11.8-14.3)
[2021-03-14] MEDS: SPIRONOLACTONE 25 MG TAB PO SCH (06:43)
[2021-03-14] MEDS: PENTOXIFYLLINE 400 MG ER TAB PO SCH ×2 (06:44→14:00)
[2021-03-14 06:46] LABS: Calcium 8.1 mg/dL (8.5-10.1); Potassium 5.4 mmol/L (3.5-5.1); White Blood Cell 54.9 10^3/uL (4.4-10.8)
[2021-03-14 06:47] LABS: Basophils % (manual) 0 (0.0-2.0); Blast Cells 0; Eosinophils % (manual) 0 (0-7); Promyelocytes % 0; Reactive Lymphocytes 0
[2021-03-14 06:50] LABS: BUN/Creatinine Ratio 61.8; Bilirubin, Total 21.8 mg/dL (0.2-1.0); Total Protein 4.8 g/dL (6.4-8.2)
[2021-03-14] MEDS: ALBUTEROL SULF 2.5 MG/0.5ML(0.5%) NEB SOLN NEB PRN ×2 (07:28→07:30)
[2021-03-14] MEDS: IPRATROPIUM BROM 0.5 MG/2.5ML INH SOL NEB PRN ×2 (07:28→07:30)
[2021-03-14 07:46] LABS: Band Neutrophils % (manual) 14; Lymphocytes % (manual) 5 (10.0-50.0); Metamyelocytes % 1; Monocytes % (manual) 4 (0-12); Myelocytes % 1
[2021-03-14] MEDS: Ensure HIGH Protein Chocolate 8oz Bottle PO SCH ×3 (08:00→17:58)
[2021-03-14 09:00] VITALS: BP 129/98
[2021-03-14] MEDS: PANTOPRAZOLE 40 MG TAB PO SCH (10:15)
[2021-03-14] MEDS: MULTIPLE VITAMIN TAB PO SCH (10:15)
[2021-03-14] MEDS: THIAMINE 100mg/ml INJ (200mg/2ml VIAL) IV SCH (10:15)
[2021-03-14] MEDS: MORPHINE SULFATE 4 MG/ML SYR/VIAL IV PRN ×2 (10:17→21:01)
[2021-03-14] MEDS: FOLIC ACID 1 MG in D5W 5% 50 ML INJ SCH (11:00)
[2021-03-14 13:00] VITALS: BP 112/85
[2021-03-14] MEDS ORDERED: traMADol HCL 50 MG TAB PO PRN (13:15)
[2021-03-14] MEDS: LORazepam 2MG/ML-1ML VIAL IV PRN (15:46)
[2021-03-14] MEDS: ONDANSETRON HCL 4 MG/2 ML VIAL IV PRN ×2 (15:46→21:01)
[2021-03-14 17:00] VITALS: BP 114/89
[2021-03-14 20:19] VITALS: BP 104/77
== END 2021-03-14 21:09 | disposition short-term general hospital (02) | DRG 280 ==
LOC: ER 13:39 → TELE 23:44 → TELE-EAST 03-02 02:18
PROVIDERS: ADMIT Nurse Practitioner Family; ATTEND Internal Medicine
PROC: 05H933Z Insertion of Infusion Device into Right Brachial Vein, Percutaneous Approach (ICD-10-PCS; 2021-03-04)
PROC: B54MZZA Ultrasonography of Right Upper Extremity Veins, Guidance (ICD-10-PCS; 2021-03-04)
PROC: 30233K1 Transfusion of Nonautologous Frozen Plasma into Peripheral Vein, Percutaneous Approach (ICD-10-PCS; 2021-03-05)
PROC: XW13325 Transfusion of Convalescent Plasma (Nonautologous) into Peripheral Vein, Percutaneous Approach, New Technology Group 5 (ICD-10-PCS; principal; 2021-03-10)
DX: K70.11 Alcoholic hepatitis with ascites (principal); E43 Unspecified severe protein-calorie malnutrition; F10.231 Alcohol dependence with withdrawal delirium; D68.9 Coagulation defect, unspecified; R65.10 Systemic inflammatory response syndrome (SIRS) of non-infectious origin without acute organ dysfunction; K72.90 Hepatic failure, unspecified without coma; E87.70 Fluid overload, unspecified; E87.1 Hypo-osmolality and hyponatremia; K74.60 Unspecified cirrhosis of liver; K80.20 Calculus of gallbladder without cholecystitis without obstruction; E87.6 Hypokalemia; Z68.30 Body mass index [BMI] 30.0-30.9, adult; I10 Essential (primary) hypertension; F17.210 Nicotine dependence, cigarettes, uncomplicated; Z20.822 Contact with and (suspected) exposure to COVID-19; Z86.16 Personal history of COVID-19; Z87.01 Personal history of pneumonia (recurrent)
CPT/HCPCS: 36415; 71045; 71250; 74176; 74181; 76705; 78226; 80048; 80053; 80307; 81001; 81025; 82140; 82150; 82270; 82306; 82962; 83036; 83605; 83690; 83735; 83880; 84100; 84443; 84484; 84550; 85007; 85025; 85027; 85610; 85730; 86850; 86900; 86901; 87040; 87081; 87426; 87493; 94640; 96361; 96365; 96375; 97110; 97116; 97163; 97530; C9113; G0378; J0696; J1815; J2185; J2250; J2405; J2543; J3430; J3480; J3490; J7060